=== PATIENT | female | born 1975 | race Caucasian/White ===

== ENCOUNTER 2017-06-01 21:47 | Outpatient (CLI) | payer MEDICAID ==
[~2017-06-01] VITALS: Ht 165.1 cm; Wt 97.0 kg
[~2017-06-01 21:47] MED LIST: PNV#1COM9 PO
== END 2017-06-01 23:45 | disposition home or self-care (01) ==
LOC: LDOP 21:47
PROVIDERS: ATTEND Obstetrics & Gynecology
DX: O09.522 Supervision of elderly multigravida, second trimester (principal); O26.892 Other specified pregnancy related conditions, second trimester; O99.342 Other mental disorders complicating pregnancy, second trimester; O99.332 Smoking (tobacco) complicating pregnancy, second trimester; F32.9 Major depressive disorder, single episode, unspecified; F17.200 Nicotine dependence, unspecified, uncomplicated; J02.9 Acute pharyngitis, unspecified; R04.2 Hemoptysis; Z3A.19 19 weeks gestation of pregnancy
CPT/HCPCS: 59025; 81001; 87077; 87086; 87186; 99211; G0463

== ENCOUNTER 2017-06-27 14:54 | Outpatient (CLI) | payer MEDICAID ==
[~2017-06-27] VITALS: Ht 165.1 cm; Wt 97.3 kg
[2017-06-27 15:51] VITALS: BP 103/60
[2017-06-27 15:53] LABS: MICROSCOPIC INDICATED
[2017-06-27 16:01] LABS: AMPHETAMINE SCREEN, URINE Negative (Negative); BARBITURATE SCREEN, URINE Negative (Negative); BENZODIAZEPINE SCREEN, URINE Negative (Negative); CANNABINOID SCREEN, URINE Positive (Negative); COCAINE SCREEN, URINE Negative (Negative); METHADONE SCREEN, URINE Negative (Negative); OPIATE SCREEN, URINE Negative (Negative)
[2017-06-27 16:05] LABS: AMNISURE NEGATIVE (NEGATIVE)
[2017-06-27] MEDS ORDERED: ASPI-515 PO (16:16)
== END 2017-06-27 16:56 | disposition home or self-care (01) ==
LOC: LDOP 14:54
PROVIDERS: ATTEND Obstetrics & Gynecology
DX: O42.912 Preterm premature rupture of membranes, unspecified as to length of time between rupture and onset of labor, second trimester (principal); Z3A.23 23 weeks gestation of pregnancy
CPT/HCPCS: 59025; 80307; 81001; 84112; 87086; 99211; G0463

== ENCOUNTER 2017-06-28 15:46 | Inpatient (IN) | payer MEDICAID ==
[~2017-06-28] VITALS: Ht 165.1 cm; Wt 97.2 kg
[~2017-06-28 15:46] MED LIST changes: +ASPI-515 PO
[2017-06-28] MEDS ORDERED: morphine SULFATE 10 MG/ML, 1ML ONE (16:27)
[2017-06-28 16:30] VITALS: BP 119/56
[2017-06-28] MEDS ORDERED: morphine SULFATE 10 MG/ML, 1ML IVPush ONE (16:30)
[2017-06-28] MEDS ORDERED: LACTATED RINGERS 1,000 ML IVBOLUS ONE (16:30)
[2017-06-28 17:03] LABS: MEAN CORPUSCULAR HEMOGLOBIN 29.7 pg (27.0-34.8); MEAN CORPUSCULAR HGB CONC 33.3 g/dL (32.4-35.8); MEAN CORPUSCULAR VOLUME 89.2 fL (80-100); MEAN PLATELET VOLUME 9.1 fL (7.4-10.4); PLATELET COUNT 211 x10^3/uL (130-400); RED BLOOD COUNT 4.35 x10^6/uL (3.82-5.3); RED CELL DISTRIBUTION WIDTH 16.2 % (9.6-15.2)
[2017-06-28 17:04] LABS: AMPHETAMINE SCREEN, URINE Negative (Negative); BARBITURATE SCREEN, URINE Negative (Negative); BENZODIAZEPINE SCREEN, URINE Negative (Negative); CANNABINOID SCREEN, URINE Positive (Negative); COCAINE SCREEN, URINE Negative (Negative); METHADONE SCREEN, URINE Negative (Negative); OPIATE SCREEN, URINE Negative (Negative)
[2017-06-28 17:05] LABS: MICROSCOPIC INDICATED
[2017-06-28 17:25] LABS: MD YES
[2017-06-28 17:26] LABS: BAND#(MANUAL) 3.38 x10^3/uL; BANDS%(MANUAL) 15 % (0-7); LYMPHS% (MANUAL) 8 % (22-44); MONOS#(MANUAL) 0.45 x10^3/uL (0.3-2.7); MONOS% (MANUAL) 2 % (2-9); SEG#(MANUAL) 16.88 x10^3/uL (1.8-6.8); SEGS% (MANUAL) 75 % (42-75)
[2017-06-28 17:27] LABS: <PLATELET ESTIMATE> ADEQUATE; <PLT MORPHOLOGY> NORMAL PLT MORPH; <RBC MORPHOLOGY> NORMAL
[2017-06-28] MEDS ORDERED: MAGNESIUM SULF. PMX 20GM/500ML 500 ML IV SCH (18:25)
[2017-06-28] MEDS ORDERED: MAGNESIUM SULF. PMX 20GM/500ML 500 ML IV ONE (18:25)
[2017-06-28] MEDS ORDERED: OXYTOCIN 30U/ 0.9% NaCL 500ML 500 ML ONE ×2 (18:53→20:36)
[2017-06-28] MEDS ORDERED: NEWBORN KIT ONE ×2 (18:53→22:13)
[2017-06-28] MEDS ORDERED: MISOPROSTOL 200 MCG TABLET ONE (18:53)
[2017-06-28] MEDS ORDERED: FENTANYL PF 100 MCG/2ML ONE (19:10)
[2017-06-28] MEDS ORDERED: FENTANYL PF 100 MCG/2ML IVPush PRN (19:30)
[2017-06-28] MEDS ORDERED: LACTATED RINGERS 1,000 ML IV SCH (19:32)
[2017-06-28] MEDS ORDERED: OXYTOCIN 30U/ 0.9% NaCL 500ML 500 ML IV ONE (19:32)
[2017-06-28] MEDS ORDERED: MIDAZOLAM 1 MG/ML, 5ML ONE (19:52)
[2017-06-28] MEDS ORDERED: KETAMINE 10 MG/ML, 20ML ONE (19:52)
[2017-06-28] MEDS ORDERED: METOCLOPRAMIDE 5 MG/ML, 2ML ONE (19:53)
[2017-06-28] MEDS ORDERED: ONDANSETRON 2MG/ML, 2ML ONE (19:53)
[2017-06-28] MEDS ORDERED: PROPOFOL 10 MG/ML, 20ML ONE (19:59)
[2017-06-28] MEDS ORDERED: MISOPROSTOL 200 MCG TABLET PR PRN (20:00)
[2017-06-28] MEDS ORDERED: OXYTOCIN 30U/ 0.9% NaCL 500ML 500 ML IV SCH (20:39)
[2017-06-28] MEDS ORDERED: METHYLERGONOVINE 0.2 MG/ML IM PRN (21:00)
[2017-06-28] MEDS ORDERED: ACETAMINOPHEN 325 MG TABLET PO PRN ×2 (21:00)
[2017-06-28] MEDS ORDERED: IBUPROFEN 600 MG TABLET PO PRN (21:00)
[2017-06-28] MEDS ORDERED: DOCUSATE 100 MG CAPSULE PO PRN (21:00)
[2017-06-28] MEDS ORDERED: OXYcodone/APAP 5/325MG TABLET PO PRN (21:00)
[2017-06-28] MEDS ORDERED: ONDANSETRON 2MG/ML, 2ML IV PRN (21:00)
[2017-06-28] MEDS ORDERED: OXYcodone/APAP 5/325MG TABLET ONE (22:22)
[2017-06-28] MEDS: OXYcodone/APAP 5/325MG TABLET PO PRN (22:25)
[2017-06-28] MEDS ORDERED: metroNIDAZOLE 500 MG TABLET PO ONE (22:30)
[2017-06-29] MEDS ORDERED: OXYcodone/APAP 5/325MG TABLET ONE (04:39)
[2017-06-29] MEDS ORDERED: IBUPROFEN 800 MG TABLET ONE (04:39)
[2017-06-29] MEDS: OXYcodone/APAP 5/325MG TABLET PO PRN (04:40)
[2017-06-29] MEDS ORDERED: IBUPROFEN 200 MG TABLET PO PRN (05:00)
[2017-06-29] MEDS ORDERED: METR500T PO (06:51)
[2017-06-29] MEDS ORDERED: OXYC-307 PO (06:53)
[2017-06-29 07:55] LABS: MEAN CORPUSCULAR HEMOGLOBIN 29.7 pg (27.0-34.8); MEAN CORPUSCULAR HGB CONC 33.2 g/dL (32.4-35.8); MEAN CORPUSCULAR VOLUME 89.5 fL (80-100); MEAN PLATELET VOLUME 9.1 fL (7.4-10.4); PLATELET COUNT 200 x10^3/uL (130-400); RED BLOOD COUNT 3.73 x10^6/uL (3.82-5.3); RED CELL DISTRIBUTION WIDTH 15.8 % (9.6-15.2)
[2017-06-29 08:28] LABS: BASOPHILS % (AUTO) 0 % (0-1); EOSINOPHILS # (AUTO) 0.07 x10^3/uL (0-0.4); EOSINOPHILS % (AUTO) 0 % (1-7); LYMPHOCYTES # (AUTO) 1.36 x10^3/uL (1-3.4); LYMPHOCYTES % (AUTO) 7 % (22-44); MD SCAN; MONOCYTES # (AUTO) 0.77 x10^3/uL (0.2-0.8); MONOCYTES % (AUTO) 4 % (2-9); NEUTROPHILS # (AUTO) 16.21 x10^3/uL (1.8-6.8); NEUTROPHILS % (AUTO) 88 % (42-75)
[2017-06-29] MEDS ORDERED: PRENATAL VIT/IRON/FA 1 EACH TABLET PO SCH (09:00)
== END 2017-06-29 08:40 | disposition home or self-care (01) | DRG 774 ==
LOC: LDOP 15:46 → LDIP 16:32 → OBSVTOIN 18:11 → LDIP 21:39
PROVIDERS: ADMIT Obstetrics & Gynecology; ATTEND Obstetrics & Gynecology
PROC: 10E0XZZ Delivery of Products of Conception, External Approach (ICD-10-PCS; principal; 2017-06-28)
DX: O42.912 Preterm premature rupture of membranes, unspecified as to length of time between rupture and onset of labor, second trimester (principal); O73.0 Retained placenta without hemorrhage; O99.12 Other diseases of the blood and blood-forming organs and certain disorders involving the immune mechanism complicating childbirth; D72.829 Elevated white blood cell count, unspecified; F17.210 Nicotine dependence, cigarettes, uncomplicated; O99.52 Diseases of the respiratory system complicating childbirth; O99.334 Smoking (tobacco) complicating childbirth; O99.344 Other mental disorders complicating childbirth; J45.909 Unspecified asthma, uncomplicated; F32.9 Major depressive disorder, single episode, unspecified; Z3A.23 23 weeks gestation of pregnancy; Z37.0 Single live birth; Z88.0 Allergy status to penicillin
CPT/HCPCS: 36415; 76815; 80307; 81001; 85025; 85460; 86850; 86900; 87070; 87075; 87077; 87086; 87186; 87205; 88307; G0378; J2250; J2405; J2704; J3010; J2270; J2590; J2765; J3475; J7120

== ENCOUNTER 2018-01-21 17:00 | Emergency (ER) | payer MEDICAID ==
[~2018-01-21] VITALS: Ht 165.1 cm; Wt 92.0 kg
[~2018-01-21 17:00] MED LIST changes: +METR500T PO; +OXYC-307 PO
[2018-01-21 17:17] VITALS: BP 98/56
[2018-01-21] MEDS ORDERED: ALBUTEROL SULFATE 2.5 MG/3 ML NPPB ONE (17:30)
[2018-01-21] MEDS ORDERED: ALBUTEROL/IPRATROPIUM 2.5MG/0.5MG, 3 ML ONE (17:30)
[2018-01-21 18:30] LABS: HCG UR SG 1.022 (1.003-1.030)
== END 2018-01-21 18:52 | disposition home or self-care (01) ==
LOC: ED 18:46
DX: N89.8 Other specified noninflammatory disorders of vagina (principal); J45.20 Mild intermittent asthma, uncomplicated; F17.200 Nicotine dependence, unspecified, uncomplicated; R50.9 Fever, unspecified
CPT/HCPCS: 81025; 87491; 87591; 94640; 99284; J7613

== ENCOUNTER 2018-04-07 14:08 | Emergency (ER) | payer MEDICAID, OTHER ==
[~2018-04-07] VITALS: Ht 165.1 cm; Wt 90.1 kg
[2018-04-07] MEDS ORDERED: HYDROcodone/APAP 5/325 TABLET ONE (16:43)
[2018-04-07 16:46] VITALS: BP 118/71
[2018-04-07] MEDS ORDERED: HYDROcodone/APAP 5/325 TABLET PO ONE (17:00)
== END 2018-04-07 16:47 | disposition home or self-care (01) ==
LOC: ED 16:07
DX: S16.1XXA Strain of muscle, fascia and tendon at neck level, initial encounter (principal); S39.012A Strain of muscle, fascia and tendon of lower back, initial encounter; S46.912A Strain of unspecified muscle, fascia and tendon at shoulder and upper arm level, left arm, initial encounter; F17.200 Nicotine dependence, unspecified, uncomplicated; Z88.0 Allergy status to penicillin; V59.59XA Passenger in pick-up truck or van injured in collision with other motor vehicles in traffic accident, initial encounter; Y93.89 Activity, other specified; Y92.89 Other specified places as the place of occurrence of the external cause; Y99.8 Other external cause status
CPT/HCPCS: 72072; 72110; 72125; 99284

== ENCOUNTER 2018-07-20 10:41 | Emergency (ER) | payer MEDICAID, OTHER ==
[~2018-07-20] VITALS: Ht 165.1 cm; Wt 91.0 kg
--- NOTE | 2018-07-20 10:44 | NUR ---
PT NOT IN LOBBY AT THIS TIME.
[2018-07-20 10:53] VITALS: BP 125/76
[2018-07-20 11:48] LABS: MICROSCOPIC AUTO
[2018-07-20 11:50] LABS: CULTURE INDICATED? YES
== END 2018-07-20 13:13 | disposition home or self-care (01) ==
LOC: ED 12:36
DX: O26.891 Other specified pregnancy related conditions, first trimester (principal); K43.9 Ventral hernia without obstruction or gangrene; Z3A.12 12 weeks gestation of pregnancy
CPT/HCPCS: 76815; 81001; 87086; 99284

== ENCOUNTER 2018-10-13 14:46 | Outpatient (CLI) | payer MEDICAID ==
[~2018-10-13] VITALS: Ht 165.1 cm; Wt 100.0 kg
[2018-10-13 15:24] VITALS: BP 113/59
[2018-10-13 15:32] LABS: MICROSCOPIC NOT IND
[2018-10-13 15:43] LABS: AMPHETAMINE SCREEN, URINE Negative (Negative); BARBITURATE SCREEN, URINE Negative (Negative); BENZODIAZEPINE SCREEN, URINE Negative (Negative); CANNABINOID SCREEN, URINE Positive (Negative); COCAINE SCREEN, URINE Negative (Negative); METHADONE SCREEN, URINE Negative (Negative); OPIATE SCREEN, URINE Negative (Negative)
[2018-10-13] MEDS ORDERED: ASPIRIN 81 MG TABLET CHEW PO SCH (16:10)
== END 2018-10-13 16:34 | disposition home or self-care (01) ==
LOC: LDOP 14:46
PROVIDERS: ATTEND Obstetrics & Gynecology
DX: O47.02 False labor before 37 completed weeks of gestation, second trimester (principal); O99.512 Diseases of the respiratory system complicating pregnancy, second trimester; Z3A.24 24 weeks gestation of pregnancy
CPT/HCPCS: 59025; 80307; 81003; 87086; 99211; G0463

== ENCOUNTER 2018-12-20 21:13 | Outpatient (CLI) | payer MEDICAID ==
[~2018-12-20] VITALS: Ht 165.1 cm; Wt 106.8 kg
[2018-12-20 21:50] LABS: MICROSCOPIC NOT IND
[2018-12-20 21:52] VITALS: BP 127/67
[2018-12-20 22:02] LABS: AMPHETAMINE SCREEN, URINE Negative (Negative); BARBITURATE SCREEN, URINE Negative (Negative); BENZODIAZEPINE SCREEN, URINE Negative (Negative); CANNABINOID SCREEN, URINE Positive (Negative); COCAINE SCREEN, URINE Negative (Negative); METHADONE SCREEN, URINE Negative (Negative); OPIATE SCREEN, URINE Negative (Negative)
== END 2018-12-20 23:07 | disposition home or self-care (01) ==
LOC: LDOP 21:13
PROVIDERS: ATTEND Obstetrics & Gynecology
DX: O09.523 Supervision of elderly multigravida, third trimester (principal); O99.613 Diseases of the digestive system complicating pregnancy, third trimester; O99.89 Other specified diseases and conditions complicating pregnancy, childbirth and the puerperium; K42.9 Umbilical hernia without obstruction or gangrene; M54.5 Low back pain; M79.89 Other specified soft tissue disorders; Z3A.34 34 weeks gestation of pregnancy
CPT/HCPCS: 59025; 80307; 81003; 87086; 99211; G0463

== ENCOUNTER 2019-01-14 15:37 | Outpatient (CLI) | payer MEDICAID ==
[~2019-01-14] VITALS: Ht 165.1 cm; Wt 106.3 kg
[2019-01-14] MEDS ORDERED: PREN1TAB60 PO (16:25)
[2019-01-14 16:44] VITALS: BP 132/69
[2019-01-14 16:56] LABS: MICROSCOPIC INDICATED
[2019-01-14 17:06] LABS: AMPHETAMINE SCREEN, URINE Negative (Negative); BARBITURATE SCREEN, URINE Negative (Negative); BENZODIAZEPINE SCREEN, URINE Negative (Negative); CANNABINOID SCREEN, URINE Positive (Negative); COCAINE SCREEN, URINE Negative (Negative); OPIATE SCREEN, URINE Negative (Negative); TOTAL PROTEIN,URINE RANDOM 11 mg/dL (0-12)
[2019-01-14 17:07] LABS: METHADONE SCREEN, URINE Negative (Negative); PROTEIN/CREATININE RATIO,URINE 93 (0-200)
[2019-01-14 17:34] LABS: BASOPHILS # (AUTO) 0.03 x10^3/uL (0-0.1); BASOPHILS % (AUTO) 0 % (0-1); EOSINOPHILS # (AUTO) 0.06 x10^3/uL (0-0.4); EOSINOPHILS % (AUTO) 1 % (1-7); LYMPHOCYTES # (AUTO) 1.38 x10^3/uL (1-3.4); LYMPHOCYTES % (AUTO) 13 % (22-44); MD NO; MEAN CORPUSCULAR HEMOGLOBIN 29.7 pg (27.0-34.8); MEAN CORPUSCULAR HGB CONC 32.7 g/dL (32.4-35.8); MEAN CORPUSCULAR VOLUME 90.8 fL (80-100); MEAN PLATELET VOLUME 9.6 fL (7.4-10.4); MONOCYTES # (AUTO) 0.74 x10^3/uL (0.2-0.8); MONOCYTES % (AUTO) 7 % (2-9); NEUTROPHILS # (AUTO) 8.62 x10^3/uL (1.8-6.8); NEUTROPHILS % (AUTO) 80 % (42-75); PLATELET COUNT 194 x10^3/uL (130-400); RED BLOOD COUNT 4.22 x10^6/uL (3.82-5.3); RED CELL DISTRIBUTION WIDTH 15.1 % (9.6-15.2)
[2019-01-14 17:46] LABS: ALANINE AMINOTRANSFERASE 22 U/L (12-78); ALBUMIN 2.2 g/dL (3.4-5.0); ANION GAP 5 mmol/L (5-15); CALCIUM 8.7 mg/dL (8.5-10.1); CHLORIDE 109 mmol/L (98-107); CREATININE 0.48 mg/dL (0.55-1.02)
[2019-01-14 17:47] LABS: BILIRUBIN, DIRECT < 0.1 mg/dL (0.1-0.2)
[2019-01-14 17:50] LABS: ALKALINE PHOSPHATASE 110 U/L (45-117); BILIRUBIN,TOTAL 0.2 mg/dL (0.2-1.0); TOTAL PROTEIN 6.1 g/dL (6.4-8.2)
[2019-02-02] MEDS ORDERED: IBUP200T49 PO (10:39)
== END 2019-01-14 19:00 | disposition home or self-care (01) ==
LOC: LDOP 15:37
PROVIDERS: ATTEND Obstetrics & Gynecology
DX: O09.523 Supervision of elderly multigravida, third trimester (principal); O13.3 Gestational [pregnancy-induced] hypertension without significant proteinuria, third trimester; Z3A.38 38 weeks gestation of pregnancy
CPT/HCPCS: 36415; 59025; 80053; 80307; 81001; 82248; 82570; 83615; 84156; 84550; 85025; 99211; G0463

== ENCOUNTER 2019-01-31 10:58 | Inpatient (IN) | payer MEDICAID ==
[~2019-01-31] VITALS: Ht 167.6 cm; Wt 110.5 kg
[2019-02-02 12:57] VITALS: BP 133/73
== END 2019-02-02 15:00 | disposition home or self-care (01) | DRG 807 ==
LOC: LDOP 10:58 → LDIP 11:55 → 2NW 02-01 00:15
PROVIDERS: ADMIT Obstetrics & Gynecology; ATTEND Obstetrics & Gynecology
PROC: 10E0XZZ Delivery of Products of Conception, External Approach (ICD-10-PCS; principal; 2019-01-31)
PROC: 3E0R3BZ Introduction of Anesthetic Agent into Spinal Canal, Percutaneous Approach (ICD-10-PCS; 2019-01-31)
PROC: 00HU33Z Insertion of Infusion Device into Spinal Canal, Percutaneous Approach (ICD-10-PCS; 2019-01-31)
PROC: 10H07YZ Insertion of Other Device into Products of Conception, Via Natural or Artificial Opening (ICD-10-PCS; 2019-01-31)
DX: O99.824 Streptococcus B carrier state complicating childbirth (principal); Z37.0 Single live birth; Z3A.40 40 weeks gestation of pregnancy; O99.52 Diseases of the respiratory system complicating childbirth; J45.909 Unspecified asthma, uncomplicated; O99.344 Other mental disorders complicating childbirth; F32.9 Major depressive disorder, single episode, unspecified
CPT/HCPCS: 36415; J7121; 80307; 82803; 84112; 85025; 86850; 86900; 90715; G0378; J3370; J2590; J7120

== ENCOUNTER 2019-08-06 17:52 | Emergency (ER) | payer MEDICAID ==
[~2019-08-06] VITALS: Ht 165.1 cm; Wt 102.2 kg
[~2019-08-06 17:52] MED LIST changes: +IBUP200T49 PO; +PREN1TAB60 PO
[2019-08-06 19:06] VITALS: BP 153/69
[2019-08-06 20:10] LABS: RAPID INFLUENZA A Negative (Negative); RAPID INFLUENZA B Negative (Negative)
== END 2019-08-06 20:54 | disposition home or self-care (01) ==
LOC: ED 20:10
DX: J01.90 Acute sinusitis, unspecified (principal); B34.9 Viral infection, unspecified; R09.89 Other specified symptoms and signs involving the circulatory and respiratory systems; J45.909 Unspecified asthma, uncomplicated
CPT/HCPCS: 71046; 87081; 87400; 87880; 99284

== ENCOUNTER 2019-08-29 23:48 | Emergency (ER) | payer MEDICAID ==
[~2019-08-29] VITALS: Ht 165.1 cm; Wt 103.0 kg
[2019-08-29 23:50] VITALS: BP 153/85
[2019-08-30] MEDS ORDERED: KETOROLAC 30 MG/1 ML ONE (00:13)
[2019-08-30] MEDS: KETOROLAC 30 MG/1 ML IM ONE ×2 (00:16→00:27)
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
[2019-08-30] MEDS ORDERED: OXYcodone/APAP 5/325MG TABLET PO ONE (01:30)
[2019-08-30] MEDS ORDERED: OXYcodone/APAP 5/325MG TABLET ONE (01:31)
--- NOTE | 2019-08-30 01:34 | NUR ---
JAEN RN: ASSISTED IN PT CARE. PT MEDICATED PER AUG PRIOR TO SPLINTING. TECH AT BEDSIDE TO APPLY SPLINT.
== END 2019-08-30 02:44 | disposition home or self-care (01) ==
LOC: ED 08-30 02:30
DX: S52.572A Other intraarticular fracture of lower end of left radius, initial encounter for closed fracture (principal); Y04.8XXA Assault by other bodily force, initial encounter; Y93.89 Activity, other specified; Y92.009 Unspecified place in unspecified non-institutional (private) residence as the place of occurrence of the external cause; Y99.8 Other external cause status
CPT/HCPCS: 29125; 99283; J1885

== ENCOUNTER 2019-09-18 17:20 | Emergency (ER) | payer MEDICAID ==
[~2019-09-18] VITALS: Ht 165.1 cm; Wt 90.0 kg
--- NOTE | 2019-09-18 18:36 | NUR ---
BOTH PATIENTS RESTING IN ROOM. CALL LIGHT IN REACH
[2019-09-18 18:42] VITALS: BP 128/77
[2019-09-18 18:45] LABS: HCG UR SG 1.033 (1.003-1.030)
[2019-09-18 18:50] LABS: CULTURE INDICATED? YES; MICROSCOPIC INDICATED
[2019-09-18 20:13] LABS: WET PREP WBCS MANY (FEW)
[2019-09-18 20:14] LABS: CLUE CELLS NONE SEEN (NONE SEEN)
[2019-09-18] MEDS ORDERED: LIDOCAINE-MPF 1%, 2ML ONE (20:30)
[2019-09-18] MEDS ORDERED: CEFTRIAXONE 250 MG ONE (20:30)
[2019-09-18] MEDS ORDERED: AZITHROMYCIN 500 MG TABLET PO ONE (20:30)
[2019-09-18] MEDS ORDERED: CEFTRIAXONE 250 MG IM ONE (20:30)
[2019-09-18] MEDS ORDERED: AZITHROMYCIN 500 MG TABLET ONE (20:30)
== END 2019-09-18 20:59 | disposition home or self-care (01) ==
LOC: ED 19:04
DX: A59.09 Other urogenital trichomoniasis (principal); J45.909 Unspecified asthma, uncomplicated
CPT/HCPCS: 81001; 81025; 87086; 87147; 87210; 87491; 87591; 87808; 96372; 99283; J0696

== ENCOUNTER 2020-04-24 21:56 | Emergency (ER) | payer MEDICAID ==
[~2020-04-24] VITALS: Ht 175.3 cm; Wt 101.4 kg
--- NOTE | 2020-04-24 22:09 | NUR ---
DARRIAN RN: PT TO LOBBY VIA WHEELCHAIR TO AWAIT ROOM. NO C-COLLAR PER ERP.
--- NOTE | 2020-04-25 00:15 | NUR ---
Provider at bedside
[2020-04-25] MEDS ORDERED: METHOCARBAMOL 750 MG TABLET ONE (00:29)
[2020-04-25] MEDS ORDERED: METHOCARBAMOL 750 MG TABLET PO ONE (00:30)
[2020-04-25] MEDS ORDERED: KETOROLAC 30 MG/1 ML IM ONE (00:30)
[2020-04-25] MEDS ORDERED: KETOROLAC 60 MG/2 ML ONE (00:30)
[2020-04-25 00:49] VITALS: BP 115/62
== END 2020-04-25 00:52 | disposition home or self-care (01) ==
LOC: ED 23:29
DX: S39.012A Strain of muscle, fascia and tendon of lower back, initial encounter (principal); S16.1XXA Strain of muscle, fascia and tendon at neck level, initial encounter; J45.909 Unspecified asthma, uncomplicated; F17.200 Nicotine dependence, unspecified, uncomplicated; V49.59XA Passenger injured in collision with other motor vehicles in traffic accident, initial encounter; Y93.89 Activity, other specified; Y92.410 Unspecified street and highway as the place of occurrence of the external cause; Y99.8 Other external cause status
CPT/HCPCS: 72125; 96372; 99284; J1885

== ENCOUNTER 2020-08-24 00:28 | Emergency (ER) | payer MEDICAID ==
[~2020-08-24] VITALS: Ht 165.1 cm; Wt 99.6 kg
[~2020-08-24 00:28] MED LIST changes: -ASPI-515 PO; +ASPI-963 PO; -OXYC-307 PO; +OXYC-380 PO
[2020-08-24 00:31] VITALS: BP 143/69
[2020-08-24 01:18] LABS: MICROSCOPIC AUTO
[2020-08-24] MEDS ORDERED: AZITHROMYCIN 500 MG TABLET PO ONE (01:30)
[2020-08-24] MEDS ORDERED: CEFTRIAXONE 250 MG IM ONE (01:30)
[2020-08-24 01:33] LABS: BASOPHILS % (AUTO) 0 % (0-1); EOSINOPHILS % (AUTO) 1 % (1-7); LYMPHOCYTES % (AUTO) 14 % (22-44); MEAN CORPUSCULAR HEMOGLOBIN 28.5 pg (27.0-34.8); MEAN PLATELET VOLUME 8.8 fL (7.4-10.4); MONOCYTES % (AUTO) 10 % (2-9); NEUTROPHILS % (AUTO) 75 % (42-75); PLATELET COUNT 201 x10^3/uL (130-400); RED BLOOD COUNT 4.64 x10^6/uL (3.82-5.3); RED CELL DISTRIBUTION WIDTH 15.6 % (9.6-15.2)
[2020-08-24 01:34] LABS: MD NO
[2020-08-24 01:41] LABS: ALANINE AMINOTRANSFERASE 9 U/L (12-78); ALBUMIN 3.2 g/dL (3.4-5.0); CALCIUM 8.5 mg/dL (8.5-10.1); CREATININE 0.77 mg/dL (0.55-1.02)
[2020-08-24 01:45] LABS: ALKALINE PHOSPHATASE 83 U/L (45-117); BILIRUBIN,TOTAL 0.4 mg/dL (0.2-1.0); TOTAL PROTEIN 6.9 g/dL (6.4-8.2)
[2020-08-24 01:57] LABS: ANION GAP 5 mmol/L (5-15); CHLORIDE 107 mmol/L (98-107)
[2020-08-24] MEDS ORDERED: HYDROcodone/APAP 5/325 TABLET ONE (01:59)
[2020-08-24] MEDS ORDERED: CEFTRIAXONE 1,000 MG ONE (01:59)
[2020-08-24] MEDS ORDERED: LIDOCAINE-MPF 1%, 2ML ONE (01:59)
[2020-08-24] MEDS ORDERED: CEFTRIAXONE 1,000 MG IM ONE (02:00)
[2020-08-24] MEDS ORDERED: HYDROcodone/APAP 5/325 TABLET PO ONE (02:00)
--- NOTE | 2020-08-24 02:10 | NUR ---
Medicated patient per mar.
[2020-08-24 02:29] LABS: CLUE CELLS NONE SEEN (NONE SEEN); WET PREP WBCS NONE SEEN (FEW)
== END 2020-08-24 03:21 | disposition home or self-care (01) ==
LOC: ED 00:57
DX: K04.7 Periapical abscess without sinus (principal); N89.8 Other specified noninflammatory disorders of vagina; R22.0 Localized swelling, mass and lump, head; R10.9 Unspecified abdominal pain; J45.909 Unspecified asthma, uncomplicated; Z20.2 Contact with and (suspected) exposure to infections with a predominantly sexual mode of transmission
CPT/HCPCS: 36415; 80053; 81001; 84703; 85025; 87210; 87491; 87591; 87808; 96372; 99284; J0696